=== PATIENT | male | born 2000 | race African-American/Black ===

== ENCOUNTER 2024-07-01 08:33 | Emergency (ER) | payer MEDICAID, OTHER ==
[~2024-07-01] VITALS: Ht 180.3 cm; Wt 127.0 kg
[2024-07-01 08:39] VITALS: O2SAT 100
[2024-07-01 08:43] VITALS: BP 172/96; PULSE 96; RESP 18; TEMP 36.8; O2SAT 99
[2024-07-01 10:06] LABS: CLARITY URINE CLEAR (CLEAR); COLOR URINE YELLOW (YELLOW); GLUCOSE URINE NEGATIVE (NEGATIVE); KETONES URINE NEGATIVE (NEGATIVE); LEUKOCYTE ESTERASE URINE NEGATIVE (NEGATIVE); NITRITE URINE NEGATIVE (NEGATIVE); OCCULT BLOOD URINE NEGATIVE (NEGATIVE); PH URINE 5.5 (4.5-8.0); PROTEIN URINE NEGATIVE (NEGATIVE); SPECIFIC GRAVITY URINE 1.021 (1.005-1.030); UROBILINOGEN URINE 0.2 E.U./dL (0.2-1.0)
== END 2024-07-01 11:44 | disposition home or self-care (01) ==
LOC: ER 08:33
DX: N50.811 Right testicular pain (principal)
CPT/HCPCS: 76870; 81003; 93976; 99284